=== PATIENT | male | born 1985 | race Caucasian/White ===

== ENCOUNTER → 2020-07-15 15:50 | Outpatient (CLI) | payer MEDICAID, SELFPAY ==
--- NOTE | 2020-07-15 16:08 | XR_ITS ---
PROCEDURE: XR CHEST PORTABLE CLINICAL HISTORY: COVID OUTPATIENT TESTING The shortness of air with cough COMPARISON: No exams were available for comparison FINDINGS: There are low lung volumes. Unremarkable cardiovascular structures. Patchy ground-glass density right upper lobe which may be related underlying pneumonia. Left basilar atelectasis is noted. No acute bony findings. IMPRESSION: 1. Left lower lobe atelectasis and/or infiltrate 2. Patchy ground-glass density right upper lobe suggesting infiltrate. Dictated by: Aakash Schmid MD 07/16/2020 05:37 Aakash Schmid MD in [place] 07/16/2020 05:37
== END ==
PROVIDERS: PCP Family Medicine; Visit Provider Family Medicine
DX: Z03.818 Encounter for observation for suspected exposure to other biological agents ruled out (principal)
CPT/HCPCS: 71045; U0003

== ENCOUNTER 2020-12-19 18:23 | Emergency (ER) | payer MEDICAID, SELFPAY ==
[2020-12-19 18:24] VITALS: BP 106/59; PULSE 134; RESP 20; TEMP 37.2; O2SAT 95; BMI 28.8
--- NOTE | 2020-12-19 18:35 | XR_ITS ---
PROCEDURE: XR CHEST PORTABLE CLINICAL HISTORY: cough COMPARISON: CR XR CHEST PORTABLE from 07/15/2020 FINDINGS: There are low lung volumes with mild atelectatic changes in the right lower lobe. No lobar consolidation collapse. Normal heart size. No acute bony abnormalities. IMPRESSION: Low lung volumes with mild right basilar atelectasis Dictated by: Aakash Schmid MD 12/19/2020 22:20 Aakash Schmid MD in [facility] 12/19/2020 22:20
--- NOTE | 2020-12-19 18:38 | [facility].EDGENADL ---
ED Disposition Clinical Impression: Cough Disposition: Home, Self-Care Condition on Discharge: Good Additional Instructions: Take antibiotics as prescribed. Begin to taper off steroids as this may be causing patient's heart rate to be elevated. Follow-up with primary care in 2 to 3 days for reevaluation. Return to the emergency department for any acute shortness of breath, chest pain or other acute new concerns. Referrals: Deandre Thayer MD [Primary Care Provider] - 3 days - Critical Care Critical Care Time: No Attestation: On 12/19/20, the high probability of a clinically significant, sudden or life threatening deterioration of the following system(s) required my full and direct attention, intervention and personal management. The time I documented below is in addition to time spent performing reported procedures but includes the following listed in this critical care notation. Medical Decision Making - Awais Inquiry Pt receiving controlled substance: No Vital Signs: 12/19/20 18:24 Temperature 98.9 F Temperature Source Oral Pulse Rate [Left Radial] 134 H Respiratory Rate 20 Blood Pressure [Right Arm] 106/59 L Blood Pressure Mean [Right Arm] 74 Blood Pressure Source [Right Arm] Automatic Cuff Blood Pressure Position [Right Arm] Sitting 02 Sat by Pulse Oximetry 95 Oxygen Delivery Method Room Air Orders (Tests/Meds): ORDERS Category Date Time Status Chest XR -- portable [XR chest portable] Stat Exams 12/19/20 18:35 Ordered - Radiology Data #1 Image(s): Chest Image Reviewed: Yes I reviewed the patient's radiology image Preliminary Findings: Normal/NAD Medical Decision Narrative: Chest x-ray shows no pneumonia, pneumothorax or florid pulmonary edema he has no chest pain, no hypoxia, low suspicion for PE. Patient is tachycardic, but mother states that the patient has been upset with his coughing and is nervous being in the emergency room. Patient is also on steroids which may be contributing to his tachycardia. I recommended tapering off the steroids and following up with PCP in 2 to 3 days for reevaluation. Return to the emergency department for any chest pain, SOA. Patient already on antibiotics in the event he has an occult pneumonia. General Adult HPI - General Stated complaint: SOB Time Seen by Provider: 12/19/20 18:38 Mode of Arrival: Ambulatory Source of Information: Patient, Parent(s) Limitations: No Limitations - History of Present Illness HPI narrative: This is a 35-year-old male with a past medical history significant for moderate mental retardation, asthma, GERD who presents to the emergency department for nasal congestion since Tuesday and nonproductive cough over the last 2 days. Patient does have a history of asthma and mother has been using Pulmicort, and started prednisone 2 days ago as well. Patient continued to have coughing, had episodes of shortness of breath, so she started albuterol nebulizers as well and was able to discuss the patient's situation with primary care, Dr. Thayer, and was prescribed cefdinir. Mother presents with patient today because of concerns for possible pneumonia and wondering if they are on all of the right medications. Patient is not currently short of breath and is happy and interactive. Mother thinks that he improved greatly when riding over here with air conditioning on in the truck. Patient denies any chest pain. No fevers, the patient did have subjective chills earlier today at home. - Related Data Home Medications Medication Instructions Recorded Confirmed [id number]-dnfzecntr-multivit,min-FA mcg PO DAILY tab 05/19/20 07/15/20 2 gram-200 mcg chewable tablet diphenhydramine HCl 25 mg capsule 25 mg PO QHS 05/19/20 07/15/20 famotidine 20 mg tablet 20 mg PO QHS 05/19/20 07/15/20 sour luther extract 1,000 mg 1,200 mg PO DAILY cap 05/19/20 07/15/20 capsule Previous Rx's Medication Instructions Recorded esomepraz
--- NOTE | 2020-12-19 19:01 | PC.NURSE ---
Pt is mentally handicapp and mother states that she just wants a x-ray at this time and will further assess what is needed after that.
[2020-12-19 19:30] VITALS: BP 104/59
[2020-12-19 19:34] VITALS: BP 106/72; PULSE 128; RESP 18; O2SAT 95
[2020-12-19 19:40] VITALS: BP 106/72; PULSE 75; RESP 18; TEMP 36.6; O2SAT 98
== END 2020-12-19 19:44 | disposition home or self-care (01) ==
PROVIDERS: Emergency Provider Emergency Medicine; PCP Family Medicine
DX: R05 Cough (principal); J45.909 Unspecified asthma, uncomplicated; K21.9 Gastro-esophageal reflux disease without esophagitis; E78.5 Hyperlipidemia, unspecified; I10 Essential (primary) hypertension; Z88.2 Allergy status to sulfonamides; Z79.899 Other long term (current) drug therapy; F79 Unspecified intellectual disabilities
CPT/HCPCS: 71045; 99282

== ENCOUNTER → 2021-08-06 13:30 | Outpatient (CLI) | payer MEDICAID, SELFPAY ==
--- NOTE | 2021-08-06 13:33 | XR_ITS ---
PROCEDURE: XR CHEST 2V CLINICAL HISTORY: Coughing COMPARISON: CR XR CHEST PORTABLE from 07/15/2020 CR XR CHEST PORTABLE from 12/19/2020 FINDINGS: The cardiomediastinal silhouette and pulmonary vascularity are within normal limits. The lungs are clear without infiltrates, suspicious nodules, or pleural effusions. Dextroscoliosis of the thoracic spine. IMPRESSION: No acute findings. Dictated by: Aakash Schmid MD 08/06/2021 14:27 Aakash Schmid MD in [facility] 08/06/2021 14:27
== END ==
PROVIDERS: PCP Family Medicine; Visit Provider Family Medicine
DX: R05.9 Cough, unspecified (principal)
CPT/HCPCS: 71046